=== PATIENT | female | born 1960 | race Caucasian/White ===

== ENCOUNTER → 2016-11-25 | Outpatient (CLI) | payer BC ==
[~2016-11-25] MED LIST: ANASTROZOLE1 MG PO; CALTRATE 600+D PO; CERTAGEN PO; FISH OIL PO; PROTANDIM; SENOKOT S1 TAB DOB; VIT B-12 PO; VITAMIN C PO
--- NOTE | ~2016-11-25 | EKG ---
PATIENT: KANA SEWELL UNIT #: [id number] Ventricular Rate: 48 BPM Atrial Rate: 48 BPM P-R Interval: 150 ms QRS Duration: 82 ms Q-T Interval: 438 ms QTC Calculation(Bezet): 391 ms P Spruce: 57 degrees Calculated R Spruce: 0 degrees Calculated T Spruce: 31 degrees Diagnosis Line: Marked sinus bradycardia Diagnosis Line: Possible Left atrial enlargement Diagnosis Line: Low voltage QRS Diagnosis Line: Nonspecific T wave abnormality Diagnosis Line: Abnormal ECG Diagnosis Line: No previous ECGs available Diagnosis Line: Confirmed by MADELINE ELLIS MD ([id number]) on Diagnosis Line: 11/26/2016 7:35:00 AM INTERPRETING MD: RHONDA SHABAZZ
== END | disposition home or self-care (01) ==
LOC: SEKG 11:22
DX: Z01.810 Encounter for preprocedural cardiovascular examination (principal)
CPT/HCPCS: 93005